=== PATIENT | female | born 1985 | race Hispanic/Latino ===

== ENCOUNTER 2018-07-14 05:33 | Day surgery (SDC) | payer BC ==
[~2018-07-14] VITALS: Ht 160 cm; Wt 78.9 kg
[~2018-07-14 05:33] MED LIST: ACET-66 PO; FLUTICASONE NASAL; LORA10CA9 PO; OMEP20CA10 PO
[2018-07-14] MEDS ORDERED: SODIUM CHLORIDE 0.9% 1000ML 1,000 ML IV ONE (05:49)
[2018-07-14 06:08] VITALS: BP 107/57
[2018-07-14] MEDS ORDERED: PROPOFOL 10 MG/ML 20ML VIAL IV ONE (07:08)
[2018-07-14] MEDS ORDERED: PHENYLEPHRINE HCL 10 MG/ML 1ML VIAL IV ONE (07:12)
[2018-07-14] MEDS ORDERED: SODIUM CHLORIDE 0.9% 10 ML VIAL ONE (07:12)
[2018-07-14 07:23] VITALS: BP 93/43
[2018-07-14 07:27] VITALS: BP 106/64
[2018-07-14 07:33] VITALS: BP 112/61
[2018-07-14 07:39] VITALS: BP 92/44
== END 2018-07-14 07:59 | disposition home or self-care (01) ==
LOC: DAH 05:33 → ENDO 05:33
PROVIDERS: ATTEND Internal Medicine
DX: K92.9 Disease of digestive system, unspecified (principal); K86.2 Cyst of pancreas; K31.89 Other diseases of stomach and duodenum; E55.9 Vitamin D deficiency, unspecified; K76.0 Fatty (change of) liver, not elsewhere classified; K29.70 Gastritis, unspecified, without bleeding; Z98.890 Other specified postprocedural states; Z79.899 Other long term (current) drug therapy; Z68.30 Body mass index [BMI] 30.0-30.9, adult; Z88.8 Allergy status to other drugs, medicaments and biological substances
CPT/HCPCS: 43237; A4606; J2370; J2704; J7030; 43231